=== PATIENT | female | born 1975 | race Caucasian/White ===

== ENCOUNTER 2019-08-29 07:00 | Inpatient (IN) | payer OTHER, SELFPAY ==
[2016-07-21 03:41] VITALS: BMI 31.6
[2019-08-29] VITALS (18 sets, daily range): BP systolic 96–138; BP diastolic 51–82; PULSE 67–83; RESP 14–16; TEMP 36.4–37.8; O2SAT 97–98; BMI 33.0
[2019-08-29 07:57] LABS: Absolute Lymphocyte Count 1.22 X10^3/uL (0.83-4.51); Absolute Neutrophil Count 4.9 X10^3/uL (2.0-7.7); Basophil# 0.03 X10^3/uL; Basophil% 0.4 % (0-1); Eosinophil# 0.08 X10^3/uL; Eosinophils% 1.2 % (0-5); Hematocrit 32.2 % (37-47); Hemoglobin 10.7 g/dL (12.0-15.0); Lymphocyte # 1.22 X10^3/ul (4.0); Lymphocyte % 18.1 % (19-41); Mean Corp Hgb Conc 33.2 g/dL (32-36); Mean Corpuscular Hgb 28.9 pg (27.0-32.0); Mean Platelet Vol. 11.7 fl (6.2-12.0); Monocyte# 0.43 X10^3/uL; Monocyte% 6.4 % (0-10); NRBC Flagged by Analyzer 0 % (0-5); Neutrophil # 4.92 X10^3/uL (2.7-7.7); Neutrophil % 73.2 % (47-70); Platelet Count 219 K/mm3 (150-450); RBC Distribution Width CV 13.3 % (11.6-14.6); RBC Distribution Width SD 41.4 fl (35.1-43.9); White Blood Count 6.7 K/mm3 (4.4-11.0)
[2019-08-29 10:40] LABS: Probe Check PASS; Specimen Processing Control PASS
[2019-08-29] MEDS: Oxytocin 30 units/NS 500 ml 30 UNITS/500 ML IV.SOLN 334 UNITS IV (12:42)
--- NOTE | 2019-08-29 13:02 | PCM.HP.OB ---
History Date of Admission: 08/29/19 Final YOBANI: 09/03/19 Final YOBANI Source: LMP Gestational age: 39 Weeks and 2 Days History of this : This is a 44 year-old, G [], P [], at 39 weeks gestational age. Surgical History: Surgical History (Last Updated 08/29/19 @ 13:[address] Helena Flanagan MD) History of colonoscopy Z98.890 History of esophagogastroduodenoscopy (EGD) Z98.890 Allergies No Known Allergies Allergy (Verified 07/21/16 03:41) Home Medications: Home Medications Vits [Prenatabs FA ] 1 tablet PO DAILY 07/21/16 Ferrous Sulfate [Iron] 325 mg PO DAILY 08/29/19 Smoking Status: Never smoker Alcohol: None Number of Fetus(es): 1 History Past Pregnancies: Past Pregnancies Delivery Date Name GA/ Weeks Outcome Route Wt Infant Sex Labor Length Anesthesia Delivery Location Provider FOB Labs: See [facility] prenatals Physical Exam Vitals: Vital Signs Temp Pulse BP Pulse Ox 97.5 F L 83 138/79 H 97 08/29/19 10:18 08/29/19 12:53 08/29/19 12:53 08/29/19 07:39 General: Alert, Oriented x3 Abdomen: Soft, Non Tender, Non-Distended, Gravid Extremities:: No tenderness/swelling Estimated gestational size: Appropriate for gestational size Presentation: Cephalic Cervix Dilation (cm): 5 - AROM clear fluid on admission Station: -1 Effacement (%): 60 Assessment/Plan This is a 44 year-old, , at 39&2 weeks gestational age. Admit to L&D AMA - counseled on R/B/A and will proceed with induction Amniotomy performed, patient would like to hold on pitocin if possible GBS negative COVID ordered EFW - less than 4500g, patient with adequate pelvis Routine care
--- NOTE | 2019-08-29 13:08 | PCM.OPRPT ---
Vaginal Delivery Maternal Presentation: Medically Indicated Induction Method of Induction: Amniotomy Medical Reason for Induction: Maternal Medical Condition: list: - Advanced maternal age Amniotic Membrane Rupture Type: Artificial Amniotic Fluid Description: Clear Final YOBANI: 09/03/19 Gestational age: 39 Weeks and 2 Days Date of Procedure: 08/29/19 Pre-Operative Diagnosis: Advanced maternal age Post-Operative Diagnosis: Same Surgery/ Procedure Performed: Spontaneous Vaginal Delivery Type of Anesthesia: None Description of Procedure: Patient prepped & draped in stirrups when C/C/+1. She pushed to delivered the head. head was gently guided to allow delivery of anterior and posterior shoulders. No excess traction placed on the head. Body delivered and infant placed on maternal abdomen. 3VC clamped and cut in delayed fashion. Good uterine tone obtained. Presentation: QUYEN Placental Delivery Description: Spontaneous Placenta Disposition: [facility] Cord Vessel Description: 3 Vessels Cord Entanglement: Around neck x 1, loose Estimated Blood Loss: 300ml A gender: Male (1 minute): 9 (5 minute): 10 Episiotomy Description: None Laceration: 1st degree - perineal - repaired with 3-0 vicryl Medications given after delivery: IV Pitocin Complications: None
[2019-08-29] MEDS: Ketorolac 30 MG/ML Syringe IV (14:14)
[2019-08-29] MEDS: Acetaminophen 500 MG Tablet 1000 MG PO (20:14)
[2019-08-30] VITALS (9 sets, daily range): BP systolic 106–124; BP diastolic 64–78; PULSE 74–84; RESP 16–18; TEMP 36.6–36.9; O2SAT 98
[2019-08-30] MEDS: Ibuprofen 600 MG Tablet PO ×3 (00:06→17:18)
[2019-08-30] MEDS: Acetaminophen 500 MG Tablet 1000 MG PO ×2 (04:27→21:24)
--- NOTE | 2019-08-30 07:29 | PCM.PN.OB ---
Subjective: Pt is doing well. Ambulating and voiding without difficulty. She denies lightheadedness, dizziness, chest pain, shortness of breath, leg pain. Lochia normal. She is breast-feeding. Jose a reg diet without nausea or vomiting. - Physical Exam Vitals/I&O's: Vital Signs Temp Pulse Resp BP Pulse Ox 97.8 F 75 16 120/69 98 08/30/19 04:00 08/30/19 04:22 08/30/19 04:00 08/30/19 04:22 08/29/19 13:22 Oxygen Delivery Method Room Air Weight: 198 lb 3.129 oz Body Mass Index (BMI) 33.0 Intake and Output for Last 24 Hours 08/28/19 08/29/19 08/30/19 23:59 23:59 23:59 Intake Total 500.0 / 500.0 Balance 500.0 / 500.0 General: Alert, No apparent distress HEENT: Atraumatic Abdomen: Non-Distended Skin: No rashes Neurological: Neuro grossly intact Psych/Mental Status: Normal Affect, Appropriate Laboratory Results 08/29/19 07:30: WBC 6.7, RBC 3.70 L, Hgb 10.7 L, Hct 32.2 L, MCV 87.0, MCH 28.9, MCHC 33.2, RDW Std Deviation 41.4, RDW Coeff of Ant 13.3, Plt Count 219, MPV 11.7, Immature Gran % (Auto) 0.700, Neut % (Auto) 73.2 H, Lymph % (Auto) 18.1 L, Rains % (Auto) 6.4, Eos % (Auto) 1.2, Baso % (Auto) 0.4, Absolute Neuts (auto) 4.9, Absolute Lymphs (auto) 1.22, Nucleated RBC % 0 08/29/19 07:30: Blood Type AB POSITIVE, Antibody Screen NEGATIVE 08/29/19 08:00: COVID-19 (JAILYN) Negative Current Medications Acetaminophen (Tylenol) 1,000 mg PO Q8H PRN PRN PRN Reason: Pain Score 1-3/10 Last Admin: 08/30/19 04:27 Dose: 1,000 mg Documented by: Bisacodyl (Dulcolax) 10 mg RECTAL UD PRN PRN Reason: If no BM Dibucaine (Dibucaine) 1 applic TOPICAL TID PRN PRN; Protocol PRN Reason: Discomfort Hydrocortisone (Hytone) 1 applic TOPICAL TID PRN PRN; Protocol PRN Reason: Discomfort Ibuprofen (Motrin) 600 mg PO Q6H PRN PRN PRN Reason: Pain Score 1-3/10 Last Admin: 08/30/19 00:06 Dose: 600 mg Documented by: Methylergonovine Maleate (Methergine) 0.2 mg IM X1 PRN PRN Reason: Excess bleeding/uterine atony Ondansetron HCl (Zofran) 4 mg IV Q4H PRN PRN PRN Reason: Nausea Oxycodone HCl (Oxyir) 5 - 10 mg PO Q4H PRN PRN PRN Reason: Pain Score 4-10/10 Senna/Docusate Sodium (Senokot-S, Radha-Colace) 1 - 2 tablet PO DAILY PRN PRN PRN Reason: Constipation Simethicone (Mylicon) 80 mg PO PCHS PRN PRN Reason: Indigestion/Stomach pain Sodium Chloride () 5 - 15 ml IV UD PRN PRN Reason: SALINE FLUSH Medical Necessity - Tobacco Use Smoking Status: Never smoker Assessment/Plan Patient is day 1 status post a spontaneous vaginal delivery. She is doing well and desires to go home today. She is breast-feeding. Reviewed control. Discharge instructions and follow-up reviewed. Discharge home later today.
--- NOTE | 2019-08-30 07:31 | DCINST_ITS ---
Discharge Diet: No Restrictions Discharge Activity: May Shower, May Take a Tub Bath May resume sexual activity in: 6 weeks Ice area for (Minutes): 15 Weight Bearing Status: Weight bearing as tolerated Call your doctor if you observe: Fever of 101 or Higher, Inability to urinate, Inability to have a bowel movement, Using more than one pad per hour, Shortness of breath, Dizziness, Fainting spells, Chest pain, Increased palpitations (ir regular heartbeat), Calf discomfort, Uncontrolled pain Cleanse incision/area with: Soap & Water Additional Instructions: If you experience any of the following, contact your healthcare provider. * Bleeding that soaks a pad every hour for 2 hours * Fever 100.4 or higher * Unrelieved incision or abdominal pain * Swelling, redness, discharge or bleeding from your incision or episiotomy site * Your incision begins to separate * Problems urinating (including inability to urinate or burning while urinating). * Visual changes * Severe headache * Flu-like symptoms * Pain or redness in one of both of your breasts * Pain, warmth, tenderness or swelling in your legs, especially the calf area * Frequent nausea and vomiting * Symptoms of depression or anxiety If you experience any of the following, call 911 or go to the nearest Emergency Room. * Chest pain * Problems breathing * Seizure activity * Partial or complete paralysis of a body part, slurred speech, weakness or drooping of the face, or a sudden inability to walk or hold your balance Allergies/Adverse Reactions: Allergies No Known Allergies Allergy (Verified 07/21/16 03:41) Medications to take at Discharge Vits [Prenatabs FA ] 1 tablet PO DAILY 07/21/16 Ferrous Sulfate [Iron] 325 mg PO DAILY 08/29/19 Please Follow Up With: Helena Flanagan MD When: 6 weeks. Can also follow up in 1-2 weeks Primary Care Physician: Josh Farooq MD [Primary Care Provider] - Test Results: Test results from this visit will be discussed in further detail at your follow- up appointment, if applicable. Proposed Discharge Date: 08/30/19 - Afternoon
--- NOTE | 2019-08-30 07:31 | PCM.DCVAG ---
Discharge Diet: No Restrictions Discharge Activity: May Shower, May Take a Tub Bath May resume sexual activity in: 6 weeks Ice area for (Minutes): 15 Weight Bearing Status: Weight bearing as tolerated Call your doctor if you observe: Fever of 101 or Higher, Inability to urinate, Inability to have a bowel movement, Using more than one pad per hour, Shortness of breath, Dizziness, Fainting spells, Chest pain, Increased palpitations (irregular heartbeat), Calf discomfort, Uncontrolled pain Cleanse incision/area with: Soap & Water Additional Instructions: If you experience any of the following, contact your healthcare provider. Bleeding that soaks a pad every hour for 2 hours Fever 100.4 or higher Unrelieved incision or abdominal pain Swelling, redness, discharge or bleeding from your incision or episiotomy site Your incision begins to separate Problems urinating (including inability to urinate or burning while urinating). Visual changes Severe headache Flu-like symptoms Pain or redness in one of both of your breasts Pain, warmth, tenderness or swelling in your legs, especially the calf area Frequent nausea and vomiting Symptoms of depression or anxiety If you experience any of the following, call 911 or go to the nearest Emergency Room. Chest pain Problems breathing Seizure activity Partial or complete paralysis of a body part, slurred speech, weakness or drooping of the face, or a sudden inability to walk or hold your balance Allergies/Adverse Reactions: Allergies No Known Allergies Allergy (Verified 07/21/16 03:41) Medications to take at Discharge Vits [Prenatabs FA ] 1 tablet PO DAILY 07/21/16 Ferrous Sulfate [Iron] 325 mg PO DAILY 08/29/19 Please Follow Up With: Helena Flanagan MD When: 6 weeks. Can also follow up in 1-2 weeks Primary Care Physician: Josh Farooq MD [Primary Care Provider] - Test Results: Test results from this visit will be discussed in further detail at your follow-up appointment, if applicable. Proposed Discharge Date: 08/30/19 - Afternoon
--- NOTE | 2019-08-30 12:15 | CASEMGMT ---
Social Work Brief Assessment - Labor and Delivery Unit Refer documentation below for further details. Date of Referral/Notification: 08/30/2019 Time of Referral: 00:15 Reason for Referral: History of Post- Depression Date of Intervention: 08/30/2019 Time of Intervention: 12:15p Informant: Medical record and mother of baby (MOB) History: MOB with history of post- depression with 1st child. Baby boyRyan is MOB and FOB?s 4th child. Assessment: Met with MOB and FOB in room. Introduced role and reason for referral. MOB discussed history of post- depression with 1st child. MOB states was prescribed medication at that time, but did not feel like it was needed so she did not start taking the medication. MOB reports has 3 daughters at home ages 10,8, and 3. MOB reports good support from , [place]. MOB and FOB have been for 15 years. MOB reports to have all needs met for baby. MOB is and reports baby is doing well with feeds. MOB denies any needs for referrals. MOB provided with resources on PPD. Nursing updated on this worker?s assessment. Nursing voices no other concerns. Plan: Home with resources provided No further needs requested or indicated. -Brittani Benton, ENTREPRENEURIAL FINANCE PROFESSOR, [employer]
== END 2019-08-30 21:40 | disposition home or self-care (01) | DRG 807 ==
PROVIDERS: Admitting Provider Obstetrics & Gynecology; PCP Family Medicine; Visit Provider Obstetrics & Gynecology
DX: O69.81X0 Labor and delivery complicated by cord around neck, without compression, not applicable or unspecified (principal); Z37.0 Single live birth; O70.0 First degree perineal laceration during delivery; Z3A.39 39 weeks gestation of pregnancy
CPT/HCPCS: 59050; 85025; 86850; 86900; 86901; 87635; 94799; 99218; G0378; U0003

== ENCOUNTER → 2021-01-17 10:13 | Outpatient (CLI) | payer OTHER, SELFPAY | PROVIDERS: PCP Family Medicine; Visit Provider Family Medicine | DX: Z23 Encounter for immunization (principal) ==